=== PATIENT | female | born 1995 | race Caucasian/White ===

== ENCOUNTER 2020-01-27 11:58 | Emergency (ER) | payer MEDICAID, SELFPAY ==
[~2020-01-27] VITALS: Ht 167.6 cm; Wt 83.5 kg
[2020-01-27 12:10] VITALS: BP_SYST 121
--- NOTE | 2020-01-27 12:25 | NUR ---
PATIENT TRIAGED IN CHAIR IN TENT
--- NOTE | 2020-01-27 12:35 | NUR ---
Pt walked in to ER with with c/o cough, fever, sore throat and headache. V/S stable, pt is afebrile. Currently in tent, will continue to monitor.
--- NOTE | 2020-01-27 12:45 | NUR ---
ER Dr. Thomas at bedside examining patient.
--- NOTE | 2020-01-27 13:40 | NUR ---
Radiology performing CXR
--- NOTE | 2020-01-27 14:00 | NUR ---
Respiratory to draw ABG's
[2020-01-27 14:05] VITALS: BP_SYST 121
--- NOTE | 2020-01-27 14:05 | NUR ---
Patient given written and verbal discharge instructions and verbalizes understanding. ER MD discussed with patient the results and treatment provided. Patient in stable condition. ID arm band removed. Rx of Azithromycin and Dexamethasone given. Patient educated on pain management and to follow up with PMD. Pain Scale 0. Opportunity for questions provided and answered. Medication side effect fact sheet provided.
== END 2020-01-27 14:05 | disposition home or self-care (01) ==
LOC: SED 11:58
DX: J18.9 Pneumonia, unspecified organism (principal); E11.9 Type 2 diabetes mellitus without complications; E03.9 Hypothyroidism, unspecified; Z20.828 Contact with and (suspected) exposure to other viral communicable diseases
CPT/HCPCS: 36600; 71045; 81025; 82803-TC; 99284

== ENCOUNTER 2022-07-11 16:56 | Emergency (ER) | payer MEDICAID ==
[~2022-07-11] VITALS: Ht 167.6 cm; Wt 98.0 kg
[2022-07-11 17:00] VITALS: BP_SYST 118
--- NOTE | 2022-07-11 17:05 | NUR ---
Patient triaged and placed in waiting room. VSS and patient appears in no acute distress at this time. Accompanied by MOTHER, awaiting available bed, and MD notified of need for MSE.
--- NOTE | 2022-07-11 19:40 | NUR ---
Call pt name in the WR.No answer.
--- NOTE | 2022-07-11 19:50 | NUR ---
Call pt name in the WR.No answer.
--- NOTE | 2022-07-11 20:00 | NUR ---
Patient left without being seen.
== END 2022-07-11 20:00 | disposition left against medical advice (07) ==
LOC: SED 16:56
DX: R33.9 Retention of urine, unspecified (principal); Z53.21 Procedure and treatment not carried out due to patient leaving prior to being seen by health care provider